=== PATIENT | male | born 1960 | race Caucasian/White ===

== ENCOUNTER 2016-07-28 17:12 | Emergency (ER) | payer OTHER ==
[2016-07-28 18:03] VITALS: BP 134/104; PULSE 74; RESP 16; TEMP 98.8; O2SAT 95
--- NOTE | 2016-07-28 18:31 | DX ---
Left Rib Series with AP Upright View of the Chest, 4 Views Total at 6:14 p.m. Clinical History: 55-year-old male with left posterior rib pain after falling out of his truck 4 days ago. Comparison Study: None. Findings: There is no rib fracture identified, nor is there a lytic or blastic lesion or periostitis. There is some left basilar subsegmental atelectasis (versus minimal infiltrate and/or pulmonary cont usion). There is no pleural effusion, pleural hematoma, or pneumothorax. The cardiac silhouette is mi ldly enlarged. The pulmonary vasculature is normal. The trachea is midline. The thoracic vertebral nikolas dy heights are maintained. Impression: There is no rib fracture or pneumothorax identified, although there is some subsegmental atelectasis versus minimal infiltrate at the left lung base.
--- NOTE | 2016-07-28 18:37 | UCPHY ---
H & P Patient Type: Established Chief Complaint Nursing Narrative: 4 days ago hit tailgate with left chest area . Now last 2 days has had tight left back area w spasms. Pain 09/04 Time Seen by Provider: 07/28/16 18:11 HPI/ROS: CHIEF COMPLAINT: back spasm HISTORY OF PRESENT ILLNESS: 55-year-old male presents emergency department complaining of left-sided mid back spasm. Patient reports 4 days ago he slipped out his truck and struck his left side of chest on the tailgate, he had pain left-sided chest pinpoint below the nipple for the 1st 2 days with pain with deep breaths, this pain has subsided and he reports muscle spasms intermittently in his back, worse with a deep and movement. Patient denies abdominal pain. He denies shortness of breath though states he is breathing shallow due to the pain. No fever or cough. He denies head strike, no neck pain. REVIEW OF SYSTEMS: A comprehensive 10 point review of systems is otherwise negative aside from elements mentioned in the history of present illness. Source: Patient Exam Limitations: No limitations - Medical/Surgical History Hx Asthma: No Hx Chronic Respiratory Disease: No Hx Diabetes: No Hx Cardiac Disease: No Hx Renal Disease: No Hx Cirrhosis: No Hx Alcoholism: No Hx HIV/AIDS: No Hx Splenectomy or Spleen Trauma: No Other PMH: PCP iJmmy Lorenzana Fannestil. Tetanus UTD. Flu Vaccine . Surg hernia repair and ortho elbow. Med hypothyroid. gout , GERD , atorvastin. - Family History Significant Family History: No pertinent family hx - Social History Smoking Status: Never smoked - Physical Exam Exam: Physical Exam Gen: Alert and Oriented, NAD HEENT: PERRL, moist mucous membranes NECK: no meningismus CV: regular rate and regular rhythm Chest wall: Tenderness to left side of chest wall with lateral squeeze PULM: CTAB, no wheezes ABDOMEN: soft, non tender to palpation, no guarding, no peritoneal signs, BS present BACK: Left-sided paraspinal thoracic tenderness to palpation NEURO: Neurologically grossly intact EXTREMITIES: normal appearing SKIN: no rash or break in skin on exposed skin PSYCH: answers questions appropriately. Constitutional: Initial Vital Signs Temperature (C) 37.1 C 07/28/16 17:51 Heart Rate 74 07/28/16 17:51 Respiratory Rate 16 07/28/16 17:51 Blood Pressure 134/104 H 07/28/16 17:51 O2 Sat (%) 95 07/28/16 17:51 O2 Delivery Mode Room Air Allergies/Adverse Reactions: No Known Allergies Allergy (Verified 07/28/16 18:00) Home Medications: Medication Instructions Recorded Atorvastatin Calcium [Lipitor 20 20 mg PO DAILY 03/19/12 mg (RX)] Levothyroxine [Synthroid 100 mcg 100 mcg PO DAILY06 03/19/12 (RX)] Omeprazole 40 mg PO 03/19/12 Allopurinol 01/13/15 Hydrocodone/APAP 5/325 [[place] 1 tab PO Q4H PRN #10 tab 07/28/16 5/325] Methocarbamol [Robaxin-750] 750 - 1,500 mg PO QID PRN #20 07/28/16 tablet Medical Decision Making - Diagnostics Imaging: Left rib series with chest x-ray independently reviewed by me- Impression: There is no rib fracture or pneumothorax identified, although there is some subsegmental atelectasis versus minimal infiltrate at the left lung base. Dictated By: Jalen Alexandra MD ED Course/Re-evaluation: 55-year-old male presents with back spasms after a fall 4 days ago onto his tailgate his car striking his left anterior chest. Chest x-ray was obtained to look for a rib fracture and shows no obvious rib fracture. Patient is discharged with a prescription for [place] and Robaxin. I have recommended ice or heat whichever feels better, 600 mg of ibuprofen every 8 hours with food for 3-5 days and he has been discharged with an incentive spirometer. He is given strict return precautions for any fevers, cough, shortness of, abdominal pain, any other questions or concerns. Differential Diagnosis: Diagnosis considered but not limited to rib contusion, costochondritis, muscle spasm Departure - Departure Disposition: Home, Routine, Self-Care Clinical Impression: Muscle spasm of back Rib contusion Qualifiers: Qualifier Code: (S20.212A) Contusion of left front wall of thorax, initial encounter Condition: Good Instructions: Rib Contusion (ED), Muscle Spasm (ED) Additional Instructions: Take 600 mg of ibuprofen every 8 hours with food for 5 days, take [place] for severe pain, take muscle relaxant for muscle spasms. Use incentive spirometer 10 times an hour while awake, cough and deep breathe frequently. Ice or heat whichever feels better. Return to Urgent Care or the emergency department for any fevers, cough, pain that is not controlled, shortness of breath, any other questions or concerns. Referrals: Stephan Aguilar MD [Primary Care Provider] - Follow Up Only If Needed Prescriptions: Hydrocodone/APAP 5/325 [[place] 5/325] 1 tab PO Q4H PRN #10 tab PRN Reason: Pain, Moderate Methocarbamol [Robaxin-750] 750 - 1,500 mg PO QID PRN #20 tablet PRN Reason: Spasms - PQRS PQRS Measurement: na
== END 2016-07-28 19:17 | disposition home or self-care (01) ==
LOC: CED 17:12
DX: S20.212A Contusion of left front wall of thorax, initial encounter (principal); M62.830 Muscle spasm of back; W22.8XXA Striking against or struck by other objects, initial encounter
CPT/HCPCS: 71101-PO; G0463-PO